=== PATIENT | female | born 1945 | race Caucasian/White ===

== ENCOUNTER 2024-01-14 16:58 | Inpatient (IN) | payer MEDICARE, BC, SELFPAY ==
[2024-01-14] VITALS (18 sets, daily range): BP systolic 123–204; BP diastolic 62–172; BMI 48.0
--- NOTE | 2024-01-14 13:29 | W.PN.CARDCBS ---
Today's Communication / Plan
-
[facility] PCI RCA
Impression / Plan
-
This is a summary, please see scanned H&P
PCP: Antoinette Dow MD
Primary inventory assistant: Alicia Grissom MD (new to pt)
78 yo WF h/o HTN, HLD, DM2, Hypothyroidism, acute UTI who developed exertional chest tightness radiating to left arm walking out of the hair salon on 01/10/24 and presented to ER. Her troponin peaked at 80 per report, EKG with transient JR on
admit but resolved. She had cardiac cath 01/13 with 2V CAD. She is being transferred today for high risk intervention RCA.
01/13/24 ECHO - LVEF 55-60%, mild dil LA/RA, moderate MAC
01/13/24 LHC - Second diagonal 40-50%, mid RCA long area 50-70%
01/13/24 Carotid duplex - LICA 50-69% stenosis
Impression:
NSTEMI
CAD 2V by cath 01/13/24
Chronic diastolic HFpEF
HTN
Hyperlipidemia
NIDDM last A1c 7.5%
UTI - abx started 01/08/24
Chronic dyspnea
Hypothyroidism
Arthritis
Morbid Obesity d/t excessive calories
Depression
Plan:
Admit IVU post PCI RCA
DAPT ASA/Plavix (was loaded with Plavix 600mg 01/13 and ASA 324mg 01/14)
Transient junctional rhythm - stopped verapamil and switched to amlodipine 5mg, holding off on BB for now, continue to monitor on tele
Hyperlipidemia - continue atorvastatin 40mg, Check Lipids
UTI - continue cephalexin 500mg q8hr to complete 10 days course on 01/18
NIDDM - SSI, continue glargine, check A1c
continue to monitor on tele
Progress Note - Vice President Of Communications
Subjective
Date of Service: January 14, 2024
no cp, sob at baseline
Physical Exam
Physical Exam
NAD< AOX3
S1, S2, RRR
CTAB, diminished t/o
SNTND bsx4 obese
trace b/l LE edema
+2DP pulses b/l
[2024-01-14 14:23] LABS: Glucose - Point of Care 221 mg/dl (70-99)
[2024-01-14] MEDS: NSS 380 ML IV (15:01)
[2024-01-14 16:00] LABS: ACT-LR - POC 358 Seconds (116-155)
--- NOTE | 2024-01-14 17:23 | ITS.CL.ANGIO ---
[facility] - Angioplasty
Angioplasty
Procedure Report:
LEFT HEART CATHETERIZATION
Date of Procedure: January 14, 2024
Procedures performed:
1: Complex percutaneous coronary intervention of the right coronary artery with placement of a 3.25 x 33 mm Xience drug-eluting stent postdilated at high pressure with a 3.5 mm diameter noncompliant balloon
Primary Care Physician: Dr. Antoinette Dow
Primary Photogrammetric Technician: Dr. Bud Karimi
INDICATION: The patient is a 78-year-old woman with a history of hypertension, obesity, diabetes, hyperlipidemia, and hypothyroidism who presented with a chest pain syndrome and low-level positive troponin consistent with a possible non-ST elevation
TX. Cardiac catheterization performed yesterday at [facility] suggested a possible culprit in the mid right coronary artery. Access from a radial approach was very challenging and given her extreme obesity at 270+ pounds I elected to
transfer to [facility] for elective PCI.
ACCESS: The patient was prepped and draped in usual sterile fashion. A 6 Jordanian sheath was placed in the right radial artery using the Seldinger over the wire technique.
HEMODYNAMIC FINDINGS (mmHg):
Ao(s/d,m): 130/72, 100
ANGIOGRAPHIC FINDINGS:
Coronary Angiography:
Please refer to full diagnostic study performed yesterday on January 13, 2024 at [facility].
Percutaneous Coronary Intervention (PCI): The patient was pretreated with oral aspirin and Plavix. Unfractionated heparin was given. A 6 Jordanian AL-1 guiding catheter was used with great difficulty to cannulate the right coronary artery. This
guide kinked during the intervention and had to be replaced with a second 6 Jordanian AL-1 guiding catheter. Unfractionated heparin was given. A BMW wire was used to cross the lesion easily. A 6 Jordanian Guideliner was used to deliver a 2.5 x 20 mm
balloon and predilated the mid right coronary artery stenosis. Again with great difficulty, a 3.25 x 33 mm Xience drug-eluting stent was delivered to the lesion. This was incredibly difficult due to the vascular loop of the innominate and deep
breath-hold's were required in addition to aggressive Guideliner support were required to deliver the stent to the lesion. The stent was deployed at 16 silva. Multiple attempts to postdilated with a noncompliant balloon resulted in loss of wire and
guide position. Ultimately I was able to rewire with a BMW wire and using a 5.5 Jordanian Guideliner deliver again with deep breath-hold a 3.5 x 20 mm noncompliant balloon. The stent was postdilated at 16 silva and distal to proximal fashion taking
care to stay within the stented margins.
FINAL RESULT: 0% in-stent residual stenosis with MICHAEL-3 flow in all vessels and an excellent angiographic result.
Fluoroscopy Time (min): 28
Radiation Dose (mGy): 1326
DAP (Gy.cm2): 96
Closure device: None. A TR band was applied for hemostasis at the right wrist.
Complications: None.
ASSESSMENT:
1: Successful complex PCI of the right coronary artery with placement of a drug-eluting stent as described above.
CONCLUSIONS and RECOMMENDATIONS:
1: Routine post drug-eluting stent and post non-STEMI medical therapy and monitoring. The patient should have dual antiplatelet therapy with aspirin 81 mg and clopidogrel 75 mg uninterrupted for at least 6 months and ideally a year. Continue
aspirin 81 mg daily indefinitely without interruption.
2: Medical therapy for coronary artery disease, hypertension, and hyperlipidemia.
3: Close clinical follow-up with Dr. Karimi.
Josefa Dunn M.D.
Copy to: Dr. Antoinette Dow, Dr. Bud Karimi
[2024-01-14] MEDS: NSS 1000 IV (17:55)
[2024-01-14 18:08] LABS: Glucose - Point of Care 192 mg/dl (70-99)
[2024-01-14] MEDS: NOVOLOG FLEXPEN-HIGH RESISTANCE 2 UNITS SC (19:48)
[2024-01-14] MEDS: TYLENOL 1000 MG PO (19:48)
[2024-01-14] MEDS: HUMULIN R U-500 (CONCENTRATED) 40 UNITS SC (20:25)
--- NOTE | 2024-01-14 21:41 | PTCARENOTE ---
received patient from the change of shift. AAOx3. complaining of mild R wrist pain at cath site. Tylenol given, see jan. R radial band removed at 2132. gauze/teg applied. site CDI, +pulse. patient states improved pain. IVF infusing per order.
patient denies any cp/sob. ambulated to the bathroom with a single point cane, standby assist. steady on her feet. SR 70s on tele. bp stable. reviewed plan of care with patient and verbalized understanding. call joya within reach. makes needs known.
ordered insulin given late. patient states that if she was at home, she would still take her insulin. see mar.
[2024-01-14 22:02] LABS: Glucose - Point of Care 242 mg/dl (70-99)
[2024-01-14] MEDS: NEURONTIN 400 MG PO (22:25)
[2024-01-14] MEDS: LANTUS 0.140000000000000013 UNITS SC (22:25)
[2024-01-14] MEDS: LIPITOR 40 MG PO (22:25)
--- NOTE | 2024-01-15 04:07 | DOWNTIME ---
There was a redIT Client Mainframe Developer Downtime on 01/15/2024 from 0111 to 01/15/2024 at 0405. Downtime documentation of patient's care, including medication administrations, has been reconciled in the electronic record per guidelines. Refer to the
patient's paper chart under the miscellaneous tab to see printed paper medication records and downtime forms.
[2024-01-15 05:04] VITALS: BP 158/78
[2024-01-15] MEDS: SYNTHROID 88 MCG PO (05:16)
[2024-01-15] MEDS: TYLENOL 1000 MG PO (05:16)
[2024-01-15 05:58] LABS: Hemoglobin 13.4 g/dL (12.0-16.0); Mean Corp Hgb Conc. 33.5 g/dL (33.0-37.0); Mean Corpuscular Hgb 29.8 pg (27.0-31.0); Mean Corpuscular Volume 88.9 fL (81.0-99.0); Mean Platelet Volume 10.4 fL (7.4-10.4); Platelet Count 216 10^3/uL (130-400); Red Cell Dist. Width 13.3 % (11.5-14.5); White Blood Cell Count 6.8 10^3/uL (4.8-10.8)
[2024-01-15 06:00] VITALS: BMI 48.0
[2024-01-15 06:32] LABS: Blood Urea Nitrogen 17 mg/dl (7-17); Calcium 9.5 mg/dl (8.4-10.2); Carbon Dioxide 26 mmol/L (22-30); Chloride 103 mmol/L (98-107); Estimated Creatinine Clearance 90 ml/min; Glucose 176 mg/dl (70-99); HDL Cholesterol 42 mg/dl; LDL Cholesterol, Calculated 31 mg/dl; Potassium 4.1 mmol/L (3.5-5.1); Sodium 137 mmol/L (135-145); Total Cholesterol 103 mg/dl (50-199); Triglyceride 151 mg/dl (10-149); Very Low Density Lipoprotein 30 mg/dl (0-30); eGFR > 60.00
[2024-01-15 06:47] VITALS: BP 188/80
[2024-01-15 06:48] VITALS: BP 193/78
[2024-01-15 06:49] LABS: Glucose - Point of Care 197 mg/dl (70-99)
[2024-01-15 06:50] VITALS: BP 179/87
--- NOTE | 2024-01-15 07:43 | W.PN.CARDCBS ---
Today's Communication / Plan
-
DAPT w/asa, plavix
cardiac rehab
followup w/Dr. Karimi
home today
Impression / Plan
-
PCP: Kika Dow MD
CDY: none prior to admission, will follow with Kalpesh Karimi MD
78 y/o, PMH sig for HTN, HLD, DM2, Hypothyroidism, recent acute UTI on current antibiotics who developed exertional chest tightness radiating to left arm walking out of the hair salon on 01/10/24 and presented to ER. Peak HS troponin 80, EKG with
transient JR on admit but resolved.
Cath at [facility] 01/13 w/with 2V CAD. She is being transferred today for high risk intervention RCA.
01/13/24 ECHO - LVEF 55-60%, mild dil LA/RA, mod MAC
01/13/24 LHC - 40-50% D2, 50-70% mid RCA
01/13/24 Carotid duplex - 50-69% LICA
IMPRESSION:
NSTEMI
2V CAD
Chronic diastolic HFpEF, 55-60%
HTN
HLD
NIDDM
Current UTI
Hypothyroidism
Arthritis
Morbid Obesity
Depression
PLAN:
NSTEMI
s/p RCA PCI w/GIANNI, complicated by difficulty with post dilation, with eventual success after rewire
Tele- NSR, no vt/arrhythmia
DAPT w/asa, plavix
echo results noted
new start metoprolol xl 12.5/d- will monitor HR
pt denies allergy to losartan- will start lisinopril 5mg/daily
cardiac rehab consult
followup w/Dr. Karimi at d/c
Transient Junctional Rhythm- has been in SR with no junctional rhythm/bradycardia/arrhythmias noted
BB had been on hold but now will start low dose Toprol XL 12.5mg daily and see how she tolerates
HTN- elevated today, only on amlodipine 5mg/daily
adding metoprolol, lisinopril and will monitor
HLD- lipid profile noted
continue atorvastatin 40/d
DM- HgbA1C pending
continue sliding scale, insulins- management per endocrinology (Dr. Armstrong at [facility])
consider Jardiance- will discuss with endocrine
UTI- currently keflex 500 q8h x 10 days-
on day 06/03- will complete course 01/18
Progress Note - Program Evaluation Consultant
Subjective
Date of Service: January 15, 2024
denies cp/palps/dyspnea
oob ambulating
cath site without pain
Objective
Labs:
01/15/24 05:05
01/15/24 05:05
Labs
Hgb 13.4 g/dL (12.0-16.0) 01/15/24 05:05
Hct 40.0 % (37.0-47.0) 01/15/24 05:05
Plt Count 216 10^3/uL (130-400) 01/15/24 05:05
Sodium 137 mmol/L (135-145) 01/15/24 05:05
Potassium 4.1 mmol/L (3.5-5.1) 01/15/24 05:05
BUN 17 mg/dl (7-17) 01/15/24 05:05
Creatinine 0.7 mg/dL (0.6-1.0) 01/15/24 05:05
Glucose 176 mg/dl (70-99) H 01/15/24 05:05
Vital Signs and I&O:
Vital Signs
Temp Pulse Resp BP Pulse Ox
97.7 F 65 18 158/78 97
01/15/24 06:51 01/15/24 05:15 01/15/24 06:51 01/15/24 05:04 01/15/24 06:51
Vital Signs
Temp Pulse Resp BP Pulse Ox
97.7 F 65 18 158/78 97
01/15/24 06:51 01/15/24 05:15 01/15/24 06:51 01/15/24 05:04 01/15/24 06:51
Intake & Output
01/13/24 01/14/24 01/15/24 01/16/24
06:59 06:59 06:59 06:59
Intake Total 1769
Balance 1769
Physical Exam
Physical Exam
AAOx3, MAEE 5/5
RRR S1 S2 no murmurs
CTA bilat, non labored
soft abd, + bs
right radial cath site without ht/bleeding, non tender
bilat extremities w/palpable distal pulses, no edema
[2024-01-15 08:34] LABS: ACT-LR - POC > 397 Seconds (116-155)
[2024-01-15 08:59] LABS: Glycohemoglobin (HgbA1c) 7.6 % (4.0-5.6)
[2024-01-15] MEDS: NOVOLOG FLEXPEN-HIGH RESISTANCE 2 UNITS SC (09:02)
[2024-01-15] MEDS: PLAVIX 75 MG PO (09:02)
[2024-01-15] MEDS: NORVASC 5 MG PO (09:03)
[2024-01-15] MEDS: WELLBUTRIN XL (24 hour extended release) 300 MG PO (09:03)
[2024-01-15] MEDS: PROTONIX 40 MG PO (09:03)
[2024-01-15] MEDS: LOW STRENGTH ASPIRIN 81 MG PO (09:03)
[2024-01-15] MEDS: EFFEXOR XR 75 MG PO (09:03)
--- NOTE | 2024-01-15 10:04 | CM ---
Reviewed chart. Met with and Mrs. Moreland to review discharge plans. She states prior to admission she resides with her spouse in a one story home with a ramp with rails. She states prior to admission she ambulates with a single point cane in
the community. She states she has a single point cane, walker and rollator at home. She states she has a prescription plan and uses [facility]. She states she has a RN Jazmyn from the doctor office that comes out to check on her and fills her
pill box. Medical work-up in progress. The discharge plan is to return home with her spouse when medically stable.
[2024-01-15 10:33] VITALS: BP 157/79
--- NOTE | 2024-01-15 10:44 | W.PN.CARDCBS ---
Today's Communication / Plan
-
Optimize medical therapy for non-STEMI
Uninterrupted dual antiplatelet therapy
Adjusted antihypertensive therapy for goal normotension
Cardiac rehab consult
Patient will need close follow-up with her outpatient shift commander as well as her portable machine sander
Impression / Plan
-
PCP: Kika Dow MD
CDY: none prior to admission, will follow with Kalpesh Karimi MD
78 y/o, PMH sig for HTN, HLD, DM2, Hypothyroidism, recent acute UTI on current antibiotics who developed exertional chest tightness radiating to left arm walking out of the hair salon on 01/10/24 and presented to ER. Peak HS troponin 80, EKG with
transient JR on admit but resolved.
Cath at [facility] 01/13 w/with 2V CAD. She is being transferred today for high risk intervention RCA.
01/13/24 ECHO - LVEF 55-60%, mild dil LA/RA, mod MAC
01/13/24 LHC - 40-50% D2, 50-70% mid RCA
01/13/24 Carotid duplex - 50-69% LICA
IMPRESSION:
NSTEMI
2V CAD
Chronic diastolic HFpEF, 55-60%
HTN
HLD
NIDDM
Current UTI
Hypothyroidism
Arthritis
Morbid Obesity
Depression
PLAN:
NSTEMI
s/p RCA PCI w/GIANNI, complicated by difficulty with post dilation, with eventual success after rewire
Tele- NSR, no vt/arrhythmia
DAPT w/asa, plavix, uninterrupted for at least 1 year
new start metoprolol xl 12.5/d- will monitor HR
pt denies allergy to losartan- will start lisinopril 5mg/daily
Will have patient discuss addition of Jardiance with her portable machine sander
cardiac rehab consult
followup w/Dr. Karimi at d/c
Transient Junctional Rhythm- has been in SR with no junctional rhythm/bradycardia/arrhythmias noted
BB had been on hold but now will start low dose Toprol XL 12.5mg daily and see how she tolerates
HTN- elevated today, only on amlodipine 5mg/daily
adding metoprolol, lisinopril and will monitor
Outpatient verapamil discontinued
HLD- lipid profile noted; LDL 31
continue atorvastatin 40/d
DM- HgbA1C 7.4%
continue sliding scale, insulins- management per endocrinology (Dr. Armstrong at [facility])
Call placed to Dr. Armstrong's office and message left
CGM with Dexcom G7
consider Jardiance- will discuss with endocrine
UTI- currently keflex 500 q8h x 10 days-
on day 06/03- will complete course 01/18
Plan for discharge home today
Progress Note - Appointment Clerk
Subjective
Date of Service: January 15, 2024
Seen and examined with at bedside. No chest pain or pressure. No shortness of breath. Reviewed presentation, cardiac catheterization findings and procedure. We also discussed blood pressure monitoring reviewed allergies. We discussed
low-salt/low carbohydrate cardiac healthy diet. All questions answered
Objective
Labs:
01/15/24 05:05
01/15/24 05:05
Labs
Hgb 13.4 g/dL (12.0-16.0) 01/15/24 05:05
Hct 40.0 % (37.0-47.0) 01/15/24 05:05
Plt Count 216 10^3/uL (130-400) 01/15/24 05:05
Sodium 137 mmol/L (135-145) 01/15/24 05:05
Potassium 4.1 mmol/L (3.5-5.1) 01/15/24 05:05
BUN 17 mg/dl (7-17) 01/15/24 05:05
Creatinine 0.7 mg/dL (0.6-1.0) 01/15/24 05:05
Glucose 176 mg/dl (70-99) H 01/15/24 05:05
Vital Signs and I&O:
Vital Signs
Temp Pulse Resp BP Pulse Ox
98.1 F 69 18 179/87 97
01/15/24 10:30 01/15/24 09:03 01/15/24 10:30 01/15/24 09:03 01/15/24 10:30
Vital Signs
Temp Pulse Resp BP Pulse Ox
98.1 F 69 18 179/87 97
01/15/24 10:30 01/15/24 09:03 01/15/24 10:30 01/15/24 09:03 01/15/24 10:30
Intake & Output
01/13/24 01/14/24 01/15/24 01/16/24
06:59 06:59 06:59 06:59
Intake Total 1769
Balance 1769
Physical Exam
Physical Exam
General: No acute distress, AAOX3
Heart: Regular, positive S1/S2,No murmur
Lungs: CTA b/l, negative wheezes/rales/rhonchi
Abd: Obese, positive BS, NT/ND, neg rebound/rigidity/guarding
Ext: Negative cyanosis/clubbing/edema. Right radial site intact
Neuro: nonfocal
[2024-01-15] MEDS: ZESTRIL 5 MG PO (11:23)
[2024-01-15] MEDS: KEFLEX 500 MG PO (11:23)
[2024-01-15] MEDS: TOPROL XL 12.5 MG PO (11:23)
[2024-01-15] MEDS: HUMULIN R U-500 (CONCENTRATED) 85 UNITS SC (11:24)
--- NOTE | 2024-01-15 13:20 | PTCARENOTE ---
d/c instructions read to pt and pts , both verbalized understanding. IV and tele removed. pt left with belongings from room, educational material and stent card. pt left via wheelchair with staff member.
--- NOTE | 2024-01-15 16:22 | W.DS.TRANS ---
DC Summary - Electric Crane Operator
-
Discharge Instructions:
Discharge Diagnosis/Procedures NSTEMI, angioplasty and stent to Right Coronary
artery
Diet Low Cholesterol,Diabetic, Carb Controlled,Low
Sodium
Driving Restrictions No driving for 24 hours
Other Services Cardiac Rehab
Specialty Instructions Weigh Daily
Stop these medications: STOP sumatriptan (imitrex)- contraindicated in
coronary artery disease. Please see PCP for
alternative medication for migraine
Instructions:
Stand-Alone Forms: DC Instructions- Cath/EP Lab
Changes to Home Medications: Yes
Discharge Medications:
DC Medications w/original date entered in [employer]
acetaminophen 500 mg tablet (Acetaminophen Extra Strength) 1,000 mg PO Q6H PRN pain 01/14/24
amlodipine 5 mg tablet 5 mg PO DAILY Blood Pressure 01/14/24
aspirin 81 mg tablet 81 mg PO DAILY Blood Clot Prevention/Tx 01/14/24
atorvastatin 40 mg tablet 40 mg PO QPM High Cholesterol 01/14/24
bupropion HCl 300 mg 24 hr tablet, extended release 300 mg PO DAILY Depression 01/14/24
cholecalciferol (vitamin D3) 50 mcg (2,000 unit) capsule (Vitamin D3) 50 mcg PO DAILY Supplement 01/14/24
furosemide 40 mg tablet 40 mg PO BID PRN fluid retention 01/14/24
gabapentin 400 mg tablet 400 mg PO QPM Neurological Condition 01/14/24
insulin glargine U-300 conc 300 unit/mL (3 mL) subcutaneous pen 6 unit SC QPM Diabetes 01/14/24
insulin regular hum U-500 conc 500 unit/mL subcutaneous soln (Humulin R U-500 (Concentrated) Insulin) 40 unit SC QPM Diabetes 01/14/24
insulin regular hum U-500 conc 500 unit/mL subcutaneous soln (Humulin R U-500 (Concentrated) Insulin) 88 unit SC DAILY Diabetes 01/14/24
lansoprazole 30 mg capsule,delayed release 30 mg PO DAILY Gastrointestinal Issue 01/14/24
levothyroxine 88 mcg tablet 88 mcg PO DAILY Thyroid 01/14/24
meloxicam 15 mg tablet 15 mg PO DAILY Pain 01/14/24
mirabegron 50 mg tablet,extended release 24 hr (Myrbetriq) 50 mg PO DAILY Urinary Issue 01/14/24
semaglutide 1 mg/dose (4 mg/3 mL) subcutaneous pen injector (Ozempic) 1 mg SC SAMSON Diabetes 01/14/24
vortioxetine 20 mg tablet (Trintellix) 20 mg PO DAILY Depression 01/14/24
clopidogrel 75 mg tablet 75 mg PO DAILY #90 tabs 01/15/24
lisinopril 5 mg tablet 5 mg PO DAILY #90 tabs 01/15/24
metoprolol succinate 25 mg tablet,extended release 24 hr 12.5 mg PO DAILY #90 tabs 01/15/24
venlafaxine 150 mg capsule,extended release 24 hr 150 mg PO DAILY DEPRESSION 01/15/24
Home Medication Changes
NEW: plavix, lisinopril, metoprolol
Pending Results: No
== END 2024-01-15 13:22 | disposition home or self-care (01) | DRG 322 ==
LOC: IVU 16:58
PROVIDERS: Nurse Practitioner Adult Health; ADMITTING PHYSICIAN Internal Medicine Interventional Cardiology
PROC: 027034Z Dilation of Coronary Artery, One Artery with Drug-eluting Intraluminal Device, Percutaneous Approach (ICD-10-PCS; 2024-01-14)
PROC: B2111ZZ Fluoroscopy of Multiple Coronary Arteries using Low Osmolar Contrast (ICD-10-PCS; 2024-01-14)
PROC: 4A023N7 Measurement of Cardiac Sampling and Pressure, Left Heart, Percutaneous Approach (ICD-10-PCS; 2024-01-14)
DX: I21.4 Non-ST elevation (NSTEMI) myocardial infarction (principal); I50.32 Chronic diastolic (congestive) heart failure; N39.0 Urinary tract infection, site not specified; Z68.42 Body mass index [BMI] 45.0-49.9, adult; I25.10 Atherosclerotic heart disease of native coronary artery without angina pectoris; I11.0 Hypertensive heart disease with heart failure; E78.5 Hyperlipidemia, unspecified; E11.9 Type 2 diabetes mellitus without complications; E03.9 Hypothyroidism, unspecified; E66.01 Morbid (severe) obesity due to excess calories; F32.A Depression, unspecified; Z79.82 Long term (current) use of aspirin
CPT/HCPCS: 80048; 80061; 82962; 83036; 85027; 85347; 93005; C1725; C1769; C1874; C1887; C1894; C9600; Q9967